=== PATIENT | female | born 1985 | race Caucasian/White ===

== ENCOUNTER 2016-12-26 01:43 | Observation (INO) | payer MEDICAID, OTHER ==
--- NOTE | 2016-12-26 02:31 | ED PDOC ---
HPI: Psych/Substance Abuse Time Seen by Provider: 12/26/16 02:00 Chief Complaint (Nursing): Alcohol Ingestion Chief Complaint (Provider): etoh History Per: EMS Additional History Per: EMS Additional Complaint(s): 31 y/o female history of alcohol abuse brought in by EMS for acute alcohol intoxication. Patient found sleeping on street. HPI limited due to patients current state Past Medical History Reviewed: Historical Data, Nursing Documentation, Vital Signs Vital Signs: Last Vital Signs Temp 98.7 F 12/26/16 01:55 Pulse 89 12/26/16 01:55 Resp 18 12/26/16 01:55 BP 137/84 12/26/16 01:55 Pulse Ox 98 12/26/16 01:55 - Medical History PMH: Anxiety, Depression, Seizures Denies: Diabetes, Hepatitis, HIV, HTN, Chronic Kidney Disease, Sexually Transmitted Disease - Surgical History Surgical History: No Surg Hx - Family History Family History: States: Unknown Family Hx - Home Medications Home Medications: Ambulatory Orders Medication Instructions Recorded Divalproex [Depakote DR] 500 mg PO BID #60 tcp 12/16/16 Escitalopram [Lexapro] 10 mg PO DAILY #30 tab 12/16/16 traZODone [Desyrel] 100 mg PO HS PRN #60 tab 12/16/16 - Allergies Allergies/Adverse Reactions: Allergies Allergy/AdvReac Type Severity Reaction Status Date / Time No Known Allergies Allergy Verified 12/09/16 13:31 Review of Systems Review Of Systems: ROS cannot be obtained secondary to pt's inabilty to answer questions. Physical Exam - Reviewed Nursing Documentation Reviewed: Yes Vital Signs Reviewed: Yes - Physical Exam Appears: Positive for: Well, Non-toxic, No Acute Distress Eye Exam: Positive for: EOMI, PERRL, Periorbital swelling (right), Periorbital tenderness (right) Cardiovascular/Chest: Positive for: Regular Rate, Rhythm Respiratory: Positive for: Normal Breath Sounds Gastrointestinal/Abdominal: Positive for: Normal Exam Extremity: Positive for: Normal ROM Neurologic/Psych: Positive for: Alert (responds to painful stimuli) - ECG O2 Sat by Pulse Oximetry: 98 - Progress ED Course And Treament: accucheck, alcohol level, CT head, CT facial Patient uncooperative in CT, unable to perform exam; agitated, aggressive Patient intoxicated with head/facial trauma, will need CT to rule out acute intracranial, facial injuries Patient medicated with Ativan IM for acute agitation. Patient sent back again from CT due to uncooperative behavior. Haldol IM given. ED OBSERVATION Date of observation admission: 12/26/16 Time of observation admission: 04:45 - Observation admission statement Patient is being placed in observation because:: acute alcohol intoxication, head/face trauma - Goals of Observation Goals of observation are:: Medicate for agitation to obtain CT to rule out acute intracranial injury, acute facial fracture - Progress Note Progress Note: 12/26/16 04:53 Patient sleeping 12/26/16 06:01 Disposition - Clinical Impression Clinical Impression: Alcohol abuse, Facial injury - Patient ED Disposition Is Patient to be Admitted: No - Disposition Disposition: Transfer of Care Disposition Time: 06:00 Condition: STABLE Patient Signed Over To: Jose Luis Rushing Handoff Comments: pending CTs, clinical sobriety
--- NOTE | 2016-12-26 06:06 | ED PDOC ---
- ECG O2 Sat by Pulse Oximetry: 98 Medical Decision Making Medical Decision Making: Patient s/o from Yordy Kimball PA-C at 0600 pending CTs and sobriety. Patient s/o to Dr. Torres at 0700 pending CTs and sobriety. Scribe Attestation: Documented by Latrice Chavez acting as a scribe for Jose Luis Rushing MD. Provider Scribe Attestation: All medical record entries made by the Scribe were at my direction and personally dictated by me. I have reviewed the chart and agree that the record accurately reflects my personal performance of the history, physical exam, medical decision making, and the department course for this patient. I have also personally directed, reviewed, and agree with the discharge instructions and disposition. Disposition - Clinical Impression Clinical Impression: Alcohol abuse, Facial injury - POA Present On Arrival: None - Disposition Disposition: Transfer of Care Disposition Time: 07:00 Condition: STABLE Patient Signed Over To: Vanessa Torres Handoff Comments: pending CTs and sobriety
[2016-12-26 06:08] VITALS: RESP 16
--- NOTE | 2016-12-26 06:58 | CT ---
EXAM: CT Head Without Intravenous Contrast CLINICAL HISTORY: 31 years old, female; Injury or trauma; Fall; Initial encounter; Blunt trauma (contusions or hematomas); Additional info: ETOH, fall TECHNIQUE: Axial computed tomography images of the head/brain without intravenous contrast. Coronal and sagittal reformatted images were created and reviewed. EXAM DATE/TIME: 12/26/2016 2:29 AM COMPARISON: No relevant prior studies available. FINDINGS: There is no hemorrhage. No edema, midline shift or mass effect is noted. There is normal hogan white differentiation. Ventricles, cisterns and sulci are normal for age. Calvarium is unremarkable. Included paranasal sinuses and mastoids are clear. IMPRESSION: No acute cerebral hemorrhage or edema.
--- NOTE | 2016-12-26 07:01 | CT ---
EXAM: CT Maxillofacial Without Intravenous Contrast CLINICAL HISTORY: 31 years old, female; Injury or trauma; Fall; Initial encounter; Swelling; Orbit/periorbital; Right; Additional info: ETOH, fall, right periorabital swelling TECHNIQUE: Axial computed tomography images of the face without intravenous contrast. Coronal and sagittal reformatted images were created and reviewed. EXAM DATE/TIME: 12/26/2016 2:29 AM COMPARISON: No relevant prior studies available. FINDINGS: Bones/joints: No acute fracture. Soft tissues: Mild soft tissue swelling right orbit and cheek. Orbits: Both globes, optic nerves and extraocular muscles appear symmetrical. Sinuses: Minimal mucosal thickening maxillary sinuses. No air-fluid levels. IMPRESSION: No acute fracture.
--- NOTE | 2016-12-26 07:12 | ED PDOC ---
- ECG O2 Sat by Pulse Oximetry: 98 Medical Decision Making Medical Decision Makin:00 patient signed out to me by Dr. Rushing. Pending sobriety. EXAM: CT Maxillofacial Without Intravenous Contrast CLINICAL HISTORY: 31 years old, female; Injury or trauma; Fall; Initial encounter; Swelling; Orbit /periorbital; Right; Additional info: ETOH, fall, right periorabital swelling TECHNIQUE: Axial computed tomography images of the face without intravenous contrast. Coronal and sagittal reformatted images were created and reviewed. EXAM DATE/TIME: 12/26/2016 2:29 AM COMPARISON: No relevant prior studies available. FINDINGS: Bones/joints: No acute fracture. Soft tissues: Mild soft tissue swelling right orbit and cheek. Orbits: Both globes, optic nerves and extraocular muscles appear symmetrical. Sinuses: Minimal mucosal thickening maxillary sinuses. No air-fluid levels. IMPRESSION: No acute fracture. EXAM: CT Head Without Intravenous Contrast CLINICAL HISTORY: 31 years old, female; Injury or trauma; Fall; Initial encounter; Blunt trauma ( contusions or hematomas); Additional info: ETOH, fall TECHNIQUE: Axial computed tomography images of the head/brain without intravenous contrast. Coronal and sagittal reformatted images were created and reviewed. EXAM DATE/TIME: 12/26/2016 2:29 AM COMPARISON: No relevant prior studies available. FINDINGS: There is no hemorrhage. No edema, midline shift or mass effect is noted. There is normal hogan white differentiation. Ventricles, cisterns and sulci are normal for age. Calvarium is unremarkable. Included paranasal sinuses and mastoids are clear. IMPRESSION: No acute cerebral hemorrhage or edema. Patient is now AAox3. She is ambulating around the ED. She was notified of CT results. She has normal vision when swollen R eye is kept open. She is tolerating po. She was instructed to follow-up with PMD, decrease alcohol use, apply ice and take tylenol or motrin as needed. Disposition - Clinical Impression Clinical Impression: Alcohol abuse, Facial injury - POA Present On Arrival: None - Disposition Disposition: Routine/Home Disposition Time: 09:40 Condition: STABLE
[2016-12-26 09:58] VITALS: BP 129/82; PULSE 81; TEMP 98
[2016-12-26 11:40] VITALS: O2SAT 98
== END 2016-12-26 09:43 | disposition home or self-care (01) ==
LOC: H.ER 01:43 → H.EROBSV 04:45
PROVIDERS: ADMIT Emergency Medicine; ATTEND Emergency Medicine
DX: F10.10 Alcohol abuse, uncomplicated (principal); S09.8XXA Other specified injuries of head, initial encounter; W19.XXXA Unspecified fall, initial encounter; Y93.9 Activity, unspecified; Y92.9 Unspecified place or not applicable; Y99.9 Unspecified external cause status